=== PATIENT | female | born 1985 | race Caucasian/White ===

== ENCOUNTER 2024-12-08 11:53 | Emergency (ER) | payer BC, OTHER, SELFPAY ==
[2024-12-08 11:56] VITALS: BP 111/74
--- NOTE | 2024-12-08 12:18 | ED.GENMED ---
History of Present Illness
General
Chief Complaint: Abdominal Symptoms
Source: patient
Exam Limitations: none
Time Seen by Provider: 12/08/24 12:17
Nursing documentation reviewed up to this point in time: agreed with
History of Present Illness
History of Present Illness:
Patient is a 39-year-old female who presents to the ER for evaluation. Patient reports for over 3 weeks she has had a change in bowel habits and has had intermittent diarrhea some cramping and intermittent nausea. This is a total change for her.
She was not able to get an appointment with GI until March. She reports pain is mostly in the left side which is what prompted patient to come to the ER. She denies any associated fever or chills. She has had no prior colonoscopy. No family
history of rectal cancer, colon cancer. She denies any fevers.
She denies any urinary frequency urgency or dysuria
Past History
Past History
ED Past Medical History: None
ED Past Surgical History: Gynecological
Social History
Tobacco: Non-smoker
Alcohol: None
Drug: None
Personal:
Living: with family
Employment: Employed
Review of Systems
Review of Systems
Allergies reviewed?: Yes
All Other Systems: ROS reviewed and negative except as documented in HPI and ROS
Constitutional: Reports no symptoms; Denies fever, fatigue or chills
Respiratory: Reports no symptoms
Cardiac: Reports no symptoms
ABD/GI: Reports diarrhea and other (abdominal cramping)
: Reports no symptoms
Musculoskeletal: Reports no symptoms
Skin: Reports no symptoms
Neurological: Reports no symptoms
Psychiatric: Reports no symptoms
Phy Exam
General Physical Exam
General Presentation: no apparent distress
General age: appears stated age
General Skin: warm and dry
General Habitus: normal
General Mental: alert
General Hydration: appears well hydrated
Gastrointestinal Exam
Gastrointestinal Exam: soft and other (+ left sided abd tenderness )
Neurological Exam
Neurological Exam: alert and oriented x3
Musculoskeletal Exam
Musculoskeletal Exam: full ROM
Skin Exam
Skin Exam: normal color and warm/dry
Psychiatric Exam
Psychiatric Exam: normal mood/affect
Course
Orders/Labs/Results
Orders:
Orders
12/08/24 13:10
CT Abd/pel W Iv And Oral Contr Urgent
Comment:
Reason For Exam: abd pain/diarrhea /change of bowel habits
IV Insert/Care/Rem.- Treatment PRN
0.9% Sodium Chloride 1000 ml [Nss] 1,000 ml IV BOLUS
Iohexol [Omnipaque] See Protocol PO NOW STA
Test Result ONCE
12/08/24 13:20
Complete Blood Count/With Diff Urgent
Comprehensive Metabolic Panel Urgent
HCG, Serum Qualitative Screen Urgent
Lipase Urgent
12/08/24 13:46
Iohexol [Omnipaque] 50 ml .ROUTE .STK-MED ONE
12/08/24 15:26
Urinalysis Reflex To Culture Urgent
Date Specimen was Collected: 12/08/24
Time Specimen was Collected: 14:55
Abnormal Lab Results
12/08/24
13:20
RBC 3.99 L 10^6/uL
(4.20-5.40)
Hgb 11.8 L g/dL
(12.0-16.0)
Hct 35.8 L %
(37.0-47.0)
Eosinophils % 8.0 H %
(0-6)
12/08/24 13:20
12/08/24 13:20
Vital Signs
Initial and Last Documented VS:
Initial Vital Signs
Resp
18
12/08/24 11:55
Last Documented Vital Signs
Temp Pulse Resp BP Pulse Ox
97.5 F 74 90 115/78 100
03/01/25 11:56 12/08/24 13:06 12/08/24 13:06 12/08/24 16:31 12/08/24 16:31
MDM/Problems Addressed
Differential Diagnosis Includes:
Not limited to colitis diverticulitis less likely bowel obstruction
MDM/Problems Addressed:
Patient is document is a 39-year-old female who presented with change in bowel habits diarrhea for the past several weeks. Mild nonspecific left side abdominal tenderness. CAT scan is negative for appendicitis no free air or obstruction there is
mild thickening of the bladder however patient has negative urinalysis and no symptoms consistent with UTI. Patient with no recent antibiotics no episodes of diarrhea here. Denies any fevers is afebrile. With change of bowel habits will have
patient follow-up with GI. Patient has normal labs no fever no acute distress stable vital signs stable for discharge home.
*Radiology
Radiology exam reviewed: radiology read reviewed
*Pulse Oximetry
Patient hypoxic: no
*Critical Care Note
Total Time (30-74mins, 75-104mins- exclusive of procedures): Not Applicable
ED Attending Note
-
Portions of this chart may have been created with voice recognition software.� Occasional wrong word or��sound alike� substitutions may have occurred due to the inherent limitations of voice recognition software.
Discharge Plan
Departure
Patient Disposition: Home (Routine Discharge)
Date of Disposition: 12/08/24
Time of Disposition: 16:58
Patient with high blood pressure during this ER visit?: No
Condition: Fair
Covid-19: Not Applicable
Discharge Problem:
Diarrhea
Prescriptions:
No Action
Multi 1 EACH tablet
1 tab PO DAILY
Referrals:
Ricardo Patino DO [Family Provider] -
Brinda Couch MD [Active] -
Activity Restrictions/Additional Instructions:
As discussed bland diet. Please follow-up with GI as discussed. Return if any worsening of symptoms.
Interventions
Interventions:
*Risk Screen - Suicide Last Done: 12/08/24 11:57
*General Assessment Last Done: 12/08/24 11:57
*Neglect/Abuse Screening Last Done: 12/08/24 11:57
ED- Fall Risk Assessment Last Done: 12/08/24 15:27
*ED COVID-19 Vaccine History Last Done: 12/08/24 13:06
*Nursing Disposition Last Done: 12/08/24 17:16
LK-Gcgxjc-Jarqofnrsv Assessment Last Done: 12/08/24 13:49
Discharge Date and Time
Discharge Date/Time: 12/08/24 17:22
Print Language: MAORI
[2024-12-08 13:03] VITALS: BP 127/79
[2024-12-08 13:05] VITALS: BMI 23.5
[2024-12-08 13:06] VITALS: BP 127/79
[2024-12-08 13:38] LABS: % Basophils 1.4 % (0-2); % Lymphocytes 35.5 % (20.5-51.1); % Monocytes 7.2 % (1.7-9.3); % Neutrophils 47.9 % (42.2-75.2); Absolute Basophils 0.1 10^3/uL (0-0.2); Absolute Eosinophils 0.4 10^3/uL (0-0.7); Absolute Lymphocytes 1.7 10^3/uL (1.2-3.4); Absolute Monocytes 0.4 10^3/uL (0.1-0.6); Absolute Neutrophils 2.3 10^3/uL (1.4-6.5); Hematocrit 35.8 % (37.0-47.0); Hemoglobin 11.8 g/dL (12.0-16.0); Mean Corpuscular Hgb 29.6 pg (27.0-31.0); Mean Corpuscular Volume 89.7 fL (81.0-99.0); Mean Platelet Volume 9.4 fL (7.4-10.4); Nucleated Red Blood Cells % 0 %; Platelet Count 250 10^3/uL (130-400); Red Blood Cell Count 3.99 10^6/uL (4.20-5.40); Red Cell Dist. Width 12.8 % (11.5-14.5); White Blood Cell Count 4.9 10^3/uL (4.8-10.8)
[2024-12-08] MEDS: NSS 1000 IV (13:43)
[2024-12-08] MEDS: OMNIPAQUE 50 ML PO (13:45)
[2024-12-08 13:46] LABS: HCG, Serum Qualitative Screen Negative
[2024-12-08 13:51] LABS: ALT (SGPT) 12 U/L (0-35); AST (SGOT) 26 U/L (14-36); Albumin 4.6 g/dl (3.5-5.0); Alkaline Phosphatase 44 U/L (38-126); Blood Urea Nitrogen 13 mg/dl (7-17); Calcium 9.2 mg/dl (8.4-10.2); Carbon Dioxide 24 mmol/L (22-30); Chloride 106 mmol/L (98-107); Estimated Creatinine Clearance 90 ml/min; Glucose 88 mg/dl (70-99); Potassium 3.9 mmol/L (3.5-5.1); Sodium 139 mmol/L (135-145); Total Bilirubin 0.7 mg/dl (0.2-1.3); Total Protein 6.7 g/dl (6.3-8.2); eGFR > 60.00
[2024-12-08 14:15] LABS: Lipase 118 U/L (23-300)
[2024-12-08 15:37] LABS: Urine Albumin Negative (Neg - Trace); Urine Bilirubin Negative (Negative); Urine Character Clear (Clear); Urine Color Yellow; Urine Glucose Negative (Negative); Urine Ketone Negative (Negative); Urine Leukocyte Negative (Negative); Urine Nitrite Negative (Negative); Urine Occult Blood Negative (Negative); Urine Urobilinogen Negative (Neg - 1+)
[2024-12-08 16:31] VITALS: BP 115/78
== END 2024-12-08 17:22 | disposition home or self-care (01) ==
LOC: EMR 11:53
PROVIDERS: Nurse Practitioner; EMERGENCY PHYSICIAN Emergency Medicine; FAMILY PHYSICIAN Family Medicine
DX: R19.7 Diarrhea, unspecified (principal)
CPT/HCPCS: 99284; 96360; 74177; 80053; 81003; 83690; 84703; 85025; Q9967